=== PATIENT | female | born 1965 | race Caucasian/White ===

== ENCOUNTER 2024-04-06 07:50 | Day surgery (SDC) | payer OTHER, SELFPAY ==
[2024-03-30 08:08] VITALS: BMI 33.1
[2024-03-30 09:21] LABS: % Basophils 0.5 % (0-2); % Eosinophils 1.7 % (0-6); % Immature Granulocytes 0.2 % (0-0.5); % Lymphocytes 40.8 % (20.5-51.1); % Monocytes 5.6 % (1.7-9.3); % Neutrophils 51.2 % (42.2-75.2); Absolute Eosinophils 0.1 10^3/uL (0-0.7); Absolute Lymphocytes 2.7 10^3/uL (1.2-3.4); Absolute Monocytes 0.4 10^3/uL (0.1-0.6); Absolute Neutrophils 3.4 10^3/uL (1.4-6.5); Hematocrit 36.3 % (37.0-47.0); Hemoglobin 12.3 g/dL (12.0-16.0); Mean Corp Hgb Conc. 33.9 g/dL (33.0-37.0); Mean Corpuscular Hgb 28.3 pg (27.0-31.0); Mean Corpuscular Volume 83.6 fL (81.0-99.0); Nucleated Red Blood Cells % 0 %; Platelet Count 203 10^3/uL (130-400); Red Blood Cell Count 4.34 10^6/uL (4.20-5.40); Red Cell Dist. Width 13.1 % (11.5-14.5); White Blood Cell Count 6.7 10^3/uL (4.8-10.8)
[2024-03-30 09:42] LABS: ALT (SGPT) 23 U/L (0-35); AST (SGOT) 23 U/L (14-36); Albumin 4.4 g/dl (3.5-5.0); Alkaline Phosphatase 144 U/L (38-126); Blood Urea Nitrogen 18 mg/dl (7-17); Calcium 9.6 mg/dl (8.4-10.2); Carbon Dioxide 26 mmol/L (22-30); Chloride 106 mmol/L (98-107); Estimated Creatinine Clearance 81 ml/min; Glucose 86 mg/dl (70-99); Magnesium 1.9 mg/dl (1.6-2.3); Sodium 143 mmol/L (135-145); Total Bilirubin 0.7 mg/dl (0.2-1.3); eGFR > 60.00
--- NOTE | 2024-03-30 14:52 | HPS.HSE ---
Family Physician
-
Family Physician: Desiree Petit
Chief Complaint
-
Supraventricular tachycardia.
History of Present Illness
The patient is a 58 year old female presenting today for supraventricular tachycardia. The patient reports she was first diagnosed officially with this arrhythmia in November 2019 while undergoing a sigmoidoscopy. Looking back, however, she
feels as though she likely had this diagnosis for at least 5 years previously. Her arrhythmia is often precipitated by caffeine. She has been compliant with daily Verapamil for medical therapy. Even with medical compliance, she continues to have
breakthrough episodes of supraventricular tachycardia. Symptoms associated with these episodes include palpitations and intermittent nausea. She is interested in pursuing a supraventricular tachycardia ablation for further arrhythmia management. She
denies any current complaints today such as chest pain, shortness of breath, nausea, vomiting, diarrhea, lightheadedness, dizziness, cough, sore throat, or fever.
Medical History
Past Medical History
Past Medical History: Reports Other
Additional Past Medical History:
1. Supraventricular tachycardia, pharmacological therapy with Verapamil.
2. Probable obstructive sleep apnea.
3. GERD.
4. Colon polyps.
5. Diverticulitis with abscess, 11/2019, status post sigmoidectomy, colostomy, and subsequent reversal.
6. Fatty liver disease.
7. Irritable bowel syndrome with constipation.
8. Vertigo.
9. Thyroid nodules.
10. Psoriatic arthritis, on Enbrel.
11. Overactive bladder.
12. Acute blood loss anemia after sigmoidectomy, status post blood transfusion.
13. Rosacea.
14. Bilateral dry eyes.
15. Insomnia.
16. Obesity, BMI 33.0.
17. Remote history of tobacco abuse.
Past Surgical History: Reports Other
Additional Past Surgical History:
1. Sigmoidectomy.
2. Colostomy and subsequent reversal.
3. Right thumb trigger finger release.
4. Hysterectomy.
5. Appendectomy.
6. C-sections x2.
7. Left eye surgery.
8. Colonoscopy.
9. Sigmoidoscopy.
10. Endoscopy.
Social History
Tobacco: Former Smoker (Former 1 and 1/2 pack per day smoker who quit cigarettes in 2003. )
Alcohol: None
Personal:
Living: Other (She lives in a 1 story home with her . )
Family History
Family History: Not pertinent
Allergies / Home Medications
Allergy/Medication List:
Home medications:
1. Biotin 5000 mcg p.o. daily.
2. Dulcolax 20 mg p.o. every other day.
3. Cholecalciferol 25 mcg p.o. daily.
4. Cinnamon 2000 mg p.o. daily.
5. Enbrel 50 mg subcutaneous on Saturdays.
6. Flonase 1 spray both nostrils intranasal daily.
7. Multivitamin 1 tablet p.o. daily.
8. Omeprazole 20 mg p.o. daily.
9. Miralax 8.5 grams p.o. daily.
10. Systane Balance eye drops 1 drop ophthalmic twice a day.
11. Solifenacin 5 mg p.o. every evening.
12. Verapamil 180 mg p.o. daily.
Allergies: Augmentin. Metoprolol.
Review of Systems
-
A 12 point ROS was completed and negative except as noted: Yes
Physical Exam
Vital Signs
Blood pressure 113/77. Heart rate 64. Respirations 18. Pulse ox 98% on room air.
Height 5 feet, 4 inches. Weight 87.3 kg. BMI 33.0.
Physical Exam
General: Well Developed, Well Nourished and No Apparent Distress
HEENT: NormoCephalic, Moist mucous membranes, Atraumatic and PERRLA
Respiratory: Clear
Cardiac: Regular Rhythm
GI: Soft, Non Tender, Non Distended and Other (Obese. )
Musculoskeletal: Normal Gait & Station
Skin: Warm and Dry
Neuro: AO x 3 and Nonfocal/grossly intact
Laboratory Results
-
03/30/24 08:24
03/30/24 08:24
Laboratory Results
Total Bilirubin 0.7 mg/dl (0.2-1.3) 03/30/24 08:24
AST 23 U/L (14-36) 03/30/24 08:24
ALT 23 U/L (0-35) 03/30/24 08:24
Alkaline Phosphatase 144 U/L (38-126) H 03/30/24 08:24
Magnesium 1.9.
EKG 03/30/2024: Normal sinus rhythm. Nonspecific ST and T wave abnormality.
Impression/Plan
-
IMPRESSION/PLAN:
1. Supraventricular tachycardia: The patient is in need of a supraventricular tachycardia ablation with Dr. Jovany Mancilla on 04/06/2024. The benefits and risks of the procedure have been explained to the patient. The patient understands these
risks and wishes to proceed. She will hold her Verapamil as advised by her surgeon pre-operatively.
[2024-04-06] VITALS (11 sets, daily range): BP systolic 107–124; BP diastolic 66–75; BMI 34.4
--- NOTE | 2024-04-06 15:17 | ITS.CL.ABL ---
Circulation Supervisor - Ablation
Ablation
Procedure Report:
ELECTROPHYSIOLOGIC STUDY AND POSSIBLE ABLATION
Procedure Date: April 06, 2024
Primary Care Provider: Dr Desiree Ruvalcaba
Primary yard rigger: Dr Al Islas
INDICATION: Supraventricular tachycardia, palpitations
'Time-out' was called and confirmed.
Presenting rhythm: Sinus rhythm
PROCEDURE:
Ultrasound Guidance performed by wa was utilized for femoral venous Vascular Access b/l. Vascular US demonstrated the typical vasccular anatomy.
Multipolar recording catheters were positioned at the HRA, RVA, His bundle and CS (for left atrial recording/mapping).
Mapping, recording and pacing were performed from these sites.
Baseline measurements were recorded and analyzed. Antegrade and retrograde AV debra Wenckebach CLs were obtained.
Programmed electrical stimulation was performed. Premature extrastimuli were delivered from the HRA, CS and RVA catheters.
Burst atrial pacing was also performed from HRA and LA (CS) sites.
SVT at CL = 450 ms was induced
Evidence for typical AV Debra Reentry as the tachycardia diagnosis included:
- Decremental atrial pacing demonstrated crossover phenomena consistent with the presence of dual functional AV debra physiology
- A concentric midline atrial activation sequence during SVT
- Ventricular pacing from the RVA showed earliest retrograde atrial activation to be midline, matching that seen during SVT
- Initiation of SVT was dependent on a critical AH interval (slow pathway engagement)
- Tachycardia was terminated by a VPC that did not conduct to the atria indicating origin other than AT
- During ventricular overdrive pacing of SVT, there is atrial advancement. The paced VA interval from onset of the pacing stimulus to the subsequent earliest atrial activation minus the VA interval during SVT was calculated. Delta VA interval
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
Radiofrequency Catheter Ablation:
Following determination of the SVT mechanism. [employer]ood 3-D mapping system was used to assist in mapping/targeting ablation site(s.)
The AV debra slow pathway was mapped and targeted with RF energy using a 4 mm tip non-irrigated mapping/ablation catheter. RF application resulted in only occasional accelerated junctional rhythms. Mapping at sites just anterior to the coronary
sinus ostium demonstrating what we typically be ideal EGM targets resulted in accelerated atrial rhythm with the onset of energy delivery necessitating immediate discontinuation of energy. Several more applications were given slightly more
posterior at site which resulted in the occasional but not consistent accelerated junctional rhythms. Programmed electrical stimulation was then repeated and there is now no evidence of AV debra slow pathway. With programmed electrical stimulation
including decremental atrial stimuli as well as burst atrial pacing there is no induction of SVT. After a 20-minute waiting period there is still no electrophysiologic evidence of dual AV debra physiology and there is no induction of SVT.
COMPLICATIONS: None
SUMMARY:
-EPS with coronary sinus catheter/mapping
-Induction of AV node reentry tachycardia
-Three-dimensional electroanatomical mapping
-Mapping and ablation of the AV debra slow pathway.
RECOMMENDATIONS:
Discontinue verapamil
Consideration for discharge to home later today
Copy to:
Dr. Al Islas
== END 2024-04-06 16:30 | disposition home or self-care (01) ==
LOC: CATH 07:50
PROVIDERS: ATTENDING PHYSICIAN Internal Medicine Cardiovascular Disease; FAMILY PHYSICIAN Family Medicine; OTHER PHYSICIAN Internal Medicine Cardiovascular Disease
DX: I47.10 Supraventricular tachycardia, unspecified (principal); R00.2 Palpitations; K21.9 Gastro-esophageal reflux disease without esophagitis; K76.0 Fatty (change of) liver, not elsewhere classified; E66.9 Obesity, unspecified; Z68.33 Body mass index [BMI] 33.0-33.9, adult; Z87.891 Personal history of nicotine dependence
CPT/HCPCS: C1730 ×2; C1894; C1733; C1893; 36415; 76937; 80053; 83735; 85025; 93005; 93653